=== PATIENT | male | born 1980 | race Caucasian/White ===

== ENCOUNTER 2021-06-13 20:59 | Emergency (ER) | payer OTHER ==
--- NOTE | 2021-06-13 21:10 | ED Physician Documentation ---
PD HPI HEADACHE - Stated complaint Stated Complaint: HBP/HEADACHE - History obtained from History obtained from: Patient - History of Present Illness Timing - onset: How many days ago (3-4) Timing - details: Gradual onset, Waxing and waning Pain level now: 6 Worst headache ever?: No: Worst headache ever? Location: Front, Right, Left Quality: Throbbing Associated symptoms: Vision changes (blurry vision bilaterally). No: Fever, Stiff neck, Nausea, Vomiting, Weakness, Numbness Improved by: Nothing Worsened by: Other (no exacerbating factors) Contributing factors: Hypertension Recently seen: Not recently seen - Additional information Additional information: c/o few days of generalized headache which is predominantly bifrontal with dizziness and mild bilateral blurry vision. He ran out of his antihypertensive medication (lisinopril/hctz) 1 week ago. He recently moved to [facility] and has not established with a local PMD yet. He has been measuring his blood pressures at home with readings averaging around 160s systolic, 110s diastolic but consistently elevated since he ran out of his rx Review of Systems Eyes: reports: Other (mild bilateral blurry vision). denies: Loss of vision, Decreased vision, Photophobia Cardiac: reports: Reviewed and negative Respiratory: reports: Reviewed and negative GI: denies: Nausea, Vomiting Neurologic: reports: Headache. denies: Generalized weakness, Focal weakness, Numbness PD PAST MEDICAL HISTORY - Past Medical History Past Medical History: Yes Cardiovascular: Hypertension - Present Medications Home Medications: Ambulatory Orders Medication Instructions Recorded Confirmed Lisinopril/Hydrochlorothiazide 1 tab PO DAILY #30 tablet 06/13/21 [Zestoretic 10-12.5 mg Tablet] - Allergies Allergies/Adverse Reactions: Allergies Allergy/AdvReac Type Severity Reaction Status Date / Time No Known Drug Allergies Allergy Verified 06/13/21 21:12 PD ED PE NORMAL - Vitals Vital signs reviewed: Yes - General General: Alert and oriented X 3, No acute distress, Well developed/nourished - HEENT HEENT: PERRL, EOMI - Cardiac Cardiac: RRR, No murmur - Respiratory Respiratory: No respiratory distress, Clear bilaterally - Neuro Neuro: Alert and oriented X 3, 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 BP 180s/110s. He is given 0.2mg clonidine PO and subsequently has significant improvement in BP (147/96) which correlated with resolution of his symptoms. He is given 20mg lisinopril PO and rx for lisinopril/HCT submitted to his pharmacy Departure - Departure Disposition: Home, Self Care Clinical Impression: Hypertension Qualifiers: Hypertension type: primary hypertension Qualified Code(s): I10 - Essential (primary) hypertension Condition: Good Instructions: ED Hypertension Conf Out Of Control Prescriptions: Lisinopril/Hydrochlorothiazide [Zestoretic 10-12.5 mg Tablet] 1 tab PO DAILY #30 tablet Comments: Follow up with an outpatient primary care provider. Contact your insurance provider to ask to be assigned (or given options for) a primary care provider. A prescription for lisinopril/HCTZ has been electronically submitted to [facility] pharmacy in [place] Discharge Date/Time: 06/13/21 23:05
[2021-06-13] MEDS ORDERED: cloNIDine 0.1 MG TABLET PO STA (21:37)
[2021-06-13 22:20] VITALS: BP 147/96
[2021-06-13] MEDS ORDERED: lisinopriL 5 MG TABLET PO STA (22:52)
[2021-06-13] MEDS ORDERED: IBUPROFEN 600 MG TABLET PO STA (22:53)
== END 2021-06-13 23:05 | disposition home or self-care (01) ==
LOC: ED 20:59
DX: I10 Essential (primary) hypertension (principal); T46.4X6A Underdosing of angiotensin-converting-enzyme inhibitors, initial encounter; Z91.138 Patient's unintentional underdosing of medication regimen for other reason
CPT/HCPCS: 99282; 99284; A9270

== ENCOUNTER 2022-10-19 18:54 | Emergency (ER) | payer OTHER ==
[2022-10-19 19:01] VITALS: BP 150/85
[2022-10-19] MEDS ORDERED: BUFFERED LIDOCAINE 10 ML SYRINGE SUBQ STA (19:03)
[2022-10-19] MEDS ORDERED: TETANUS/DIPHTHERIA/PERTUSSIS 0.5 ML SYRINGE IM ONE (19:03)
--- NOTE | 2022-10-19 19:17 | ED Physician Documentation ---
PD HPI HEAD INJURY - Stated complaint Stated Complaint: HEAD LAC - Chief complaint Chief Complaint: Laceration - History obtained from History obtained from: Patient - Additional information Additional information: He was helping a friend out and there was a hammer on top of the ladder. The ladder got jostled and the hammer fell and hit him on the occiput. This was around 430 this afternoon. He did not lose of consciousness. He has a moderate headache. No nausea. No other injuries. He has a laceration on the occiput. Tetanus is unknown. PD PAST MEDICAL HISTORY - Past Medical History Past Medical History: Yes Cardiovascular: Hypertension Respiratory: None Neuro: None Endocrine/Autoimmune: None GI: None : None HEENT: None Psych: None Musculoskeletal: None Derm: None - Past Surgical History Past Surgical History: Yes General: Other - Present Medications Home Medications: Ambulatory Orders Medication Instructions Recorded Confirmed Lisinopril/Hydrochlorothiazide 1 tab PO DAILY #30 tablet 06/13/21 10/19/22 [Zestoretic 10-12.5 mg Tablet] - Allergies Allergies/Adverse Reactions: Allergies Allergy/AdvReac Type Severity Reaction Status Date / Time No Known Drug Allergies Allergy Verified 10/19/22 19:01 - Social History Does the pt smoke?: No Smoking Status: Never smoker Does the pt drink ETOH?: No Does the pt have substance abuse?: No - Immunizations Immunizations are current?: No Immunizations: TDAP >10years/unknown - POLST Patient has POLST: No PD ED PE NORMAL - Vitals Vital signs reviewed: Yes - General General: Alert and oriented X 3, No acute distress - HEENT HEENT: PERRL, EOMI, Other (3 cm vertical laceration on the occiput) - Neck Neck: No bony TTP - Neuro Neuro: Alert and oriented X 3, pediatric psychologist 2-12 intact, No motor deficit, No sensory deficit, Normal speech Eye Opening: Spontaneous Motor: Obeys Commands Verbal: Oriented GCS Score: 15 Results - Vitals Vitals: Vital Signs - 24 hr 10/19/22 18:55 Temperature 35.9 C L Heart Rate 81 Respiratory 17 Rate Blood Pressure 150/85 H O2 Saturation 98 Oxygen O2 Source Room air Procedures - Laceration (location) Occipital scalp Length in cm: 3 Wound type: Linear, Into subcut fat Anesthesia: Lidocaine 1% Wound preparation: Irrigated copiously NS Skin layer closure: [place] (5) Other: Tetanus booster given PD Medical Decision Making - ED course ED course: We discussed potential CT scanning, he would like to do watchful waiting at home which is not unreasonable. Departure - Departure Disposition: 01 Home, Self Care Clinical Impression: Scalp laceration Condition: Good Record reviewed to determine appropriate education?: Yes Instructions: ED Laceration Scalp Stitch Or Stap Comments: Come back for any signs of infection which would include: Redness, swelling, drainage, increased pain, or fevers. You can wash it soap and water. Keep it covered and moist with bacitracin ointment which is available over the counter; avoid neosporin. Follow-up with your physician in 7 to 10 days for staple removal.
== END 2022-10-19 19:22 | disposition home or self-care (01) ==
LOC: ED 18:54
DX: S01.01XA Laceration without foreign body of scalp, initial encounter (principal); W20.8XXA Other cause of strike by thrown, projected or falling object, initial encounter; Y93.89 Activity, other specified
CPT/HCPCS: 12002; 90471; 99281

== ENCOUNTER 2022-10-28 20:04 | Emergency (ER) | payer OTHER ==
[2022-10-28 20:11] VITALS: BP 147/87
--- NOTE | 2022-10-28 20:16 | ED Physician Documentation ---
PD HPI HEAD INJURY - Stated complaint Stated Complaint: STAPLE REMOVAL - Chief complaint Chief Complaint: Laceration - History obtained from History obtained from: Patient (Had kelton placed in the posterior scalp 9 days ago and is here for removal. Has no specific complaints.) PD PAST MEDICAL HISTORY - Past Medical History Cardiovascular: Hypertension Respiratory: None Neuro: None Endocrine/Autoimmune: None GI: None : None HEENT: None Psych: None Musculoskeletal: None Derm: None - Past Surgical History Past Surgical History: Yes General: Other - Present Medications Home Medications: Ambulatory Orders Medication Instructions Recorded Confirmed Lisinopril/Hydrochlorothiazide 1 tab PO DAILY #30 tablet 06/13/21 10/19/22 [Zestoretic 10-12.5 mg Tablet] - Allergies Allergies/Adverse Reactions: Allergies Allergy/AdvReac Type Severity Reaction Status Date / Time No Known Drug Allergies Allergy Verified 10/28/22 20:11 - Social History Does the pt smoke?: No Smoking Status: Never smoker Does the pt drink ETOH?: No Does the pt have substance abuse?: No - Immunizations Immunizations are current?: No Immunizations: TDAP >10years/unknown - POLST Patient has POLST: No PD ED PE NORMAL - Vitals Vital signs reviewed: Yes - General General: Alert and oriented X 3, No acute distress - HEENT HEENT: Other (5 kelton in the right posterior scalp healing well. Removed on exam.) - Neuro Neuro: Alert and oriented X 3, Normal speech Results - Vitals Vitals: Vital Signs - 24 hr 10/28/22 20:08 Temperature 36.9 C Heart Rate 72 Respiratory 17 Rate Blood Pressure 147/87 H O2 Saturation 99 Oxygen O2 Source Room air Departure - Departure Disposition: 01 Home, Self Care Clinical Impression: Encounter for staple removal Condition: Stable
== END 2022-10-28 20:21 | disposition home or self-care (01) ==
LOC: ED 20:04
DX: Z48.02 Encounter for removal of sutures (principal); S01.01XD Laceration without foreign body of scalp, subsequent encounter; X58.XXXD Exposure to other specified factors, subsequent encounter; I10 Essential (primary) hypertension; Z79.899 Other long term (current) drug therapy
CPT/HCPCS: 99281; 99282

== ENCOUNTER 2024-01-02 19:25 | Emergency (ER) | payer OTHER ==
[2024-01-02 19:49] LABS: BASOPHILS % (AUTO) 0.5 %; EOSINOPHILS # (AUTO) 0.2 10^3/uL (0.0-0.7); EOSINOPHILS % (AUTO) 4.3 %; HCT - HEMATOCRIT 44.2 % (42.0-52.0); HGB - HEMOGLOBIN 15.4 g/dL (14.0-18.0); LYMPHOCYTES % (AUTO) 36.2 %; MEAN CORPUSCULAR HEMOGLOBIN 31.5 pg (27.0-31.0); MEAN CORPUSCULAR HGB CONC 34.8 g/dL (32.0-36.0); MEAN CORPUSCULAR VOLUME 90.4 fL (80.0-94.0); MEAN PLATELET VOLUME 9.6 fL (7.4-11.4); MONOCYTES # (AUTO) 0.4 10^3/uL (0.0-1.0); MONOCYTES % (AUTO) 7.8 %; NEUTROPHILS # (AUTO) 2.9 10^3/uL (1.5-6.6); NEUTROPHILS % (AUTO) 50.8 %; PLT - PLATELET COUNT 222 10^3/uL (130-450); RED BLOOD COUNT 4.89 10^6/uL (4.70-6.10); RED CELL DISTRIBUTION WIDTH 11.8 % (12.0-15.0); WHITE BLOOD COUNT 5.6 x10^3/uL (4.8-10.8)
[2024-01-02 20:02] LABS: ALBUMIN 4.6 g/dL (3.2-5.5); BILIRUBIN,TOTAL 0.6 mg/dL (0.2-1.0); CALCIUM 9.9 mg/dL (8.5-10.3); CREATININE 0.9 mg/dL (0.6-1.3); POTASSIUM 3.9 mmol/L (3.5-4.5); TOTAL PROTEIN 6.9 g/dL (6.4-8.9)
[2024-01-02 20:10] LABS: BILIRUBIN,URINE NEGATIVE (NEGATIVE); CLARITY,URINE CLEAR (CLEAR); GLUCOSE, URINE (UA) NEGATIVE (NEGATIVE); KETONES,URINE (UA) NEGATIVE (NEGATIVE); LEUKOCYTE ESTERASE, URINE NEGATIVE (NEGATIVE); NITRITE,URINE NEGATIVE (NEGATIVE); OCCULT BLOOD,URINE NEGATIVE (NEGATIVE); PROTEIN,URINE NEGATIVE (NEGATIVE); UROBILINOGEN,URINE 0.2 (NORMAL) E.U./dL (NORMAL)
[2024-01-02] MEDS: KETOROLAC 60 MG/2 ML VIAL IM STA (21:45)
--- NOTE | 2024-01-02 21:53 | Ultrasound Report ---
PROCEDURE: Testicle w/Doppler INDICATIONS: L testicular pain TECHNIQUE: Real-time scanning was performed of the scrotum and testicles, with image documentation. Color and p ulse Doppler interrogation was performed of both testicles. COMPARISON: None. FINDINGS: Right: Testicle is normal in size at 5.2 x 2.4 x 2.7 cm, and homogenous in echotexture. Epididymis is normal in overall size and morphology. No hydrocele. Left varicocele. Overlying scrotal skin is n ormal in thickness. Left: Testicle is normal in size at 4.5 x 2.4 x 3.5 cm, and homogeneous in echotexture. Epididymis is normal in overall size and morphology. No hydrocele. No varicoceles. Overlying scrotal skin is n ormal in thickness. Doppler: Color and pulse Doppler demonstrate normal and symmetric arterial flow in both testicles. IMPRESSION: Left varicocele. No acute torsion. No significant hydrocele or other sonographic findings of acute in flammation. Reviewed by: Dhruv Cavanaugh MD on 01/02/2024 9:52 PM PDT Approved by: Dhruv Cavanaugh MD on 01/02/2024 9:52 PM PDT Station ID: [id number]
--- NOTE | 2024-01-02 21:59 | CT Report ---
PROCEDURE: Abdomen/Pelvis WO INDICATIONS: L flank pain TECHNIQUE: A CT scan of the abdomen and pelvis was performed without the use of intravenous contrast. Images we re recorded and evaluated at appropriate window settings. Reformats: coronal and sagittal. For radiat ion dose reduction, the following was used: automated exposure control, adjustment of mA and/or kV ac cording to patient size. COMPARISON: None. FINDINGS: Image quality: Diagnostic Lower chest: Lung bases appear unremarkable. Mild nonspecific distal esophageal wall thickening Liver: Solid organs not well assessed without intravenous contrast. Suspected regional hepatic steato sis is present. Gallbladder and biliary system: Unremarkable, nondilated Pancreas: No ductal dilation Spleen: Nonenlarged Adrenals: No discrete nodules Kidneys: No hydronephrosis or discrete obstructing stone. Possible 1 mm nonobstructing renal calculi are seen in the left calyces Vessels and lymph nodes: No abdominal aortic aneurysm or pathologic lymph nodes by size criteria. Bowel and peritoneum: No evidence of small bowel obstruction. Nonspecific mesenteric fat stranding, p articularly jejunal mesentery. No pathologic ascites or drainable abscess. The appendix is nondilated Fecal material in the distal ileum, likely due to slow transit time through the ileocecal valve. Body wall: Small fat-containing supraumbilical ventral hernias. Pelvis: Bladder is unremarkable. There is mild wall thickening not well assessed due to underdistenti on. Prostate has mild calcifications, not well assessed on CT. Bones: Small sclerotic bone lesions, probably bone islands. No acute osseous abnormality IMPRESSION: No obstructing calcified stone. There are nonobstructing 1 mm left renal calculi within the calyces. 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 Other findings above on this noncontrast imaging. Reviewed by: Dhruv Cavanaugh MD on 01/02/2024 9:57 PM PDT Approved by: Dhruv Cavanaugh MD on 01/02/2024 9:57 PM PDT Station ID: [id number]
--- NOTE | 2024-01-02 22:11 | ED Physician Documentation ---
History of Present Illness - Stated complaint Stated Complaint: /LOWER BACK PX - Chief complaint Chief Complaint: Abd Pain - History obtained from History obtained from: Patient - History of Present Illness Pain level max: 7 Pain level now: 4 - Additonal information Additional information: Patient is a 43-year-old male who presents to the emergency department left- sided testicular pain. He states has been ongoing for "a while". He states that it became worse however today. Seems to be worse with changing positions. Worse with standing. He took Motrin last night which did seem to help. No changes in sexual partners. No STD exposure. No penile discharge. He states occasionally the pain radiates up to his left lower abdomen and left flank. No swelling. Review of Systems Constitutional: denies: Fever, Chills Respiratory: denies: Cough GI: denies: Vomiting : denies: Dysuria, Frequency, Hesitancy, Discharge Skin: denies: Rash Musculoskeletal: denies: Neck pain, Back pain Neurologic: denies: Headache PD PAST MEDICAL HISTORY - Past Medical History Cardiovascular: Hypertension Respiratory: None Neuro: None Endocrine/Autoimmune: None GI: None : None HEENT: None Psych: None Musculoskeletal: None Derm: None - Past Surgical History Past Surgical History: Yes General: Other - Present Medications Home Medications: Ambulatory Orders Medication Instructions Recorded Confirmed Lisinopril/Hydrochlorothiazide 1 tab PO DAILY #30 tablet 06/13/21 10/19/22 [Zestoretic 10-12.5 mg Tablet] HYDROcod/ACETAM 5/325 [[place] 5/325] 1 - 2 ea PO Q6H PRN #10 tablet 01/02/24 - Allergies Allergies/Adverse Reactions: Allergies Allergy/AdvReac Type Severity Reaction Status Date / Time No Known Drug Allergies Allergy Verified 10/28/22 20:11 - Social History Does the pt smoke?: No Smoking Status: Never smoker Does the pt drink ETOH?: No Does the pt have substance abuse?: No - Immunizations Immunizations are current?: No Immunizations: TDAP >10years/unknown - POLST Patient has POLST: No PD ED PE NORMAL - Vitals Vital signs reviewed: Yes - General General: Alert and oriented X 3, No acute distress - HEENT HEENT: Moist mucous membranes - Neck Neck: Supple, no meningeal sign - Cardiac Cardiac: RRR, Strong equal pulses - Respiratory Respiratory: No respiratory distress, Clear bilaterally - Abdomen Abdomen: Soft, Non tender, Non distended - Male Male : Other (normal external exam. no discharge. No lymphadenopathy. Normal testicular lie. Normal skin. Tender to palpation over the left epididymis area.) - Back Back: No CVA TTP - Derm Derm: Warm and dry - Neuro Neuro: Alert and oriented X 3 - Psych Psych: Normal mood, Normal affect Results - Vitals Vitals: Vital Signs - 24 hr 01/02/24 22:22 Heart Rate 60 Respiratory 18 Rate Blood Pressure 130/97 H O2 Saturation 98 Oxygen O2 Source Room air - Labs Labs: Laboratory Tests 01/02/24 01/02/24 01/02/24 19:20 19:42 19:42 WBC 5.6 RBC 4.89 Hgb 15.4 Hct 44.2 MCV 90.4 MCH 31.5 H MCHC 34.8 RDW 11.8 L Plt Count 222 MPV 9.6 Neut # (Auto) 2.9 Lymph # (Auto) 2.0 Sampson # (Auto) 0.4 Eos # (Auto) 0.2 Baso # (Auto) 0.0 Absolute Nucleated RBC 0.00 Nucleated RBC % 0.0 Sodium 138 Potassium 3.9 Chloride 101 Carbon Dioxide 30 Anion Gap 7.0 BUN 15 Creatinine 0.9 Estimated GFR (MDRD) 93 Glucose 156 H Calcium 9.9 Total Bilirubin 0.6 AST 17 ALT 34 Alkaline Phosphatase 71 Total Protein 6.9 Albumin 4.6 Globulin 2.3 Albumin/Globulin Ratio 2.0 Lipase 32 Urine Color YELLOW Urine Clarity CLEAR Urine pH 6.0 Ur Specific [place] 1.025 Urine Protein NEGATIVE Urine Glucose (UA) NEGATIVE Urine Ketones NEGATIVE Urine Occult Blood NEGATIVE Urine Nitrite NEGATIVE Urine Bilirubin NEGATIVE Urine Urobilinogen 0.2 (NORMAL) Ur Leukocyte Esterase NEGATIVE Ur Microscopic Review NOT INDICATED Urine Culture Comments NOT INDICATED - Rads (name of study) Testicular ultrasound Relevant Findings:: Final report received, See rad report CT abdomen pelvis Relevant Findings:: Final report received, See rad report PD Medical Decision Making - ED course Complexity details: reviewed results, re-evaluated patient, considered differential, d/w patient ED course: Patient is a 43-year-old male with left testicular and left flank pain occasionally. Appears to have a left-sided varicocele on ultrasound. Because of left flank pain a CT scan was undertaken to ensure there was no intra- abdominal process such as ureteral stone. This is negative. No evidence of infection on urinalysis. No evidence of epididymitis. Likely that the varicocele is causing the pain. Pain well-controlled here. Will place on pain medication for home and have him follow-up with urology for further care. No evidence of testicular torsion or mass. Patient counseled regarding signs and symptoms for which I believe and urgent re-evaluation would be necessary. Patient with good understanding of and agreement to plan and is comfortable going home at this time This document was made in part using voice recognition software. While efforts are made to proofread this document, sound alike and grammatical errors may occur. Departure - Departure Disposition: 01 Home, Self Care Clinical Impression: Varicocele Condition: Good Instructions: ED Varicocele Follow-Up: Miguel Santos MD [Provider Admit Priv/Credential] - Prescriptions: HYDROcod/ACETAM 5/325 [[place] 5/325] 1 - 2 ea PO Q6H PRN #10 tablet PRN Reason: Pain Comments: Your prescriptions were sent to [facility] in [place]. Please follow-up with your doctor for further care. I would recommend you follow-up with urology for further evaluation of your left-sided varicocele. This is likely causing your pain. Your testing is otherwise unremarkable today. I am prescribing a short course of narcotic pain medication for you. These are potentially dangerous and addictive medications that should be used carefully. These medications may constipate you. Take an [id number] stool softener (docusate) twice daily with plenty of water while taking these medications. If you go 24 hours without a bowel movement, take [id number]-[id number] miralax, per package instructions. Do not drink or drive while taking these medications. If you received narcotic or sedating medications while in the emergency department, do not drive for 24 hours. Store this medication in a safe, secure place and out of reach of children. It is a violation of federal law to give or sell this medication to another person or to use in a manner other than prescribed. The ED will not refill narcotic prescriptions, including prescriptions lost or stolen. To dispose of unwanted medications: 1. [facility] [address] in [place] has a medication drop box. They accept prescription medications (in pill form) Sunday through Sunday 9:00 a.m. to 5:00 p.m. 2. [facility] [employer] accepts prescription medications (in pill form only) for disposal year round. Call for more information. 3. Contact the [facility] for the next [facility] sponsored prescription drug collection event. , [phone], or [phone]; Forms: PCP List Discharge Date/Time: 01/02/24 22:22
[2024-01-02] MEDS: HYDROcod/ACET 5/325 Prepack 4 PO STA (22:18)
[2024-01-02 22:23] VITALS: BP 130/97; O2SAT 98
== END 2024-01-02 22:22 | disposition home or self-care (01) ==
LOC: ED 19:25
DX: I86.1 Scrotal varices (principal)
CPT/HCPCS: 36415; 80053; 81001; 81003; 83690; 85025; 87086; 93975; 96372; 99283; 99284

== ENCOUNTER 2024-03-10 21:47 | Emergency (ER) | payer OTHER ==
[2024-03-10 21:56] VITALS: BP 150/90; O2SAT 99
--- NOTE | 2024-03-10 22:45 | ED Physician Documentation ---
PD HPI UPPER EXT INJURY - Stated complaint Stated Complaint: R HAND LAC - Chief complaint Chief Complaint: Laceration - History obtained from History obtained from: Patient - History of Present Illness Location: Right, Hand Type of injury: Laceration (using drill on some metal edging and the bit slipped causing hand to strike the sharp edge. Laceration to dorsal MCP of little finger right hand.) Where injury occurred: Home Timing - onset: Today Associated symptoms: No: Weakness, Numbness PD PAST MEDICAL HISTORY - Past Medical History Past Medical History: Yes Cardiovascular: Hypertension Respiratory: None Neuro: None Endocrine/Autoimmune: None GI: None : None HEENT: None Psych: None Musculoskeletal: None Derm: None - Past Surgical History Past Surgical History: Yes General: Other - Present Medications Home Medications: Ambulatory Orders Medication Instructions Recorded Confirmed Lisinopril/Hydrochlorothiazide 1 tab PO DAILY #30 tablet 06/13/21 10/19/22 [Zestoretic 10-12.5 mg Tablet] HYDROcod/ACETAM 5/325 [[place] 5/325] 1 - 2 ea PO Q6H PRN #10 tablet 01/02/24 - Allergies Allergies/Adverse Reactions: Allergies Allergy/AdvReac Type Severity Reaction Status Date / Time No Known Drug Allergies Allergy Verified 03/10/24 21:50 - Social History Does the pt smoke?: No Smoking Status: Never smoker Does the pt drink ETOH?: No Does the pt have substance abuse?: No - Immunizations Immunizations are current?: No Immunizations: TDAP >10years/unknown - POLST Patient has POLST: No PD ED PE NORMAL - Vitals Vital signs reviewed: Yes - General General: Alert and oriented X 3, No acute distress, Well developed/nourished - Derm Derm: Normal color, Warm and dry - Extremities Extremities: Other (dorsal right hand with 2 cm laceration vertically over dorsal MCP, with extnsion to fatty tissue. Good ROM/extension. It does open with flexion of the finger though. ) - Neuro Neuro: Alert and oriented X 3, No motor deficit, No sensory deficit Results - Vitals Vitals: Vital Signs - 24 hr 03/10/24 21:50 Temperature 36.5 C Heart Rate 71 Respiratory 16 Rate Blood Pressure 150/90 H O2 Saturation 99 Oxygen O2 Source Room air Procedures - Laceration (location) right dorsal hand Length in cm: 2 Wound type: Linear, Into subcut fat, Clean Neurovascular status: Sensory intact, Motor intact, Vascular intact Tendon involvement: Tendon intact Anesthesia: Lidocaine 1% with epi Wound preparation: Wound explored, To the base, Other (cleansed with tap water.) Skin layer closure: Nylon, Running, Size #-0 - enter number (4), Sutures - enter # (8) PD Medical Decision Making - ED course Complexity details: considered differential (the wound goes to fatty layer. No tendon involvement. It does open with flexion of finger. As such I do not think it will hold the tension of movemnt with glue/tape and advocate sutring, to which pt is agreeable. ), d/w patient Departure - Departure Disposition: 01 Home, Self Care Clinical Impression: Laceration of hand Condition: Stable Record reviewed to determine appropriate education?: Yes Instructions: ED Laceration Hand Follow-Up: Michelle Valera PA-C [Primary Care Provider] - Comments: It is okay to wash and shower. Clean off the wound twice a day with soap and water, or peroxide and water. Apply some antibiotic ointment to it to keep it moist. Also to watch for signs of infection such as purulence, redness or increasing pain. Return to your primary care or the ER at the specified time for suture removal. Suture removal 8 to 10 days. Gentle use of the hand for the first day or 2 and then progress to more normal use. Tylenol ibuprofen if needed for pains. Forms: PCP List Discharge Date/Time: 03/10/24 23:29
== END 2024-03-10 23:29 | disposition home or self-care (01) ==
LOC: ED 21:47
DX: S61.411A Laceration without foreign body of right hand, initial encounter (principal); W26.8XXA Contact with other sharp object(s), not elsewhere classified, initial encounter; Y93.89 Activity, other specified
CPT/HCPCS: 12001; 99282